=== PATIENT | female | born 2000 | race African-American/Black ===

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

== ENCOUNTER 2020-03-26 08:55 | Emergency (ER) | payer OTHER ==
[~2020-03-26] VITALS: Ht 182.9 cm; Wt 90.0 kg
[~2020-03-26 08:55] MED LIST: AMOX1TAB61 PO; HYDR-3165 PO
[2020-03-26 09:03] VITALS: BP 117/73
--- NOTE | 2020-03-26 09:44 | RAD ---
Examination: HAND LEFT 3V, WRIST 3V LEFT History: FELL, LEFT THUMB INJURED Comparison/Correlation: None Findings: Three-view left wrist and 3 view exam the left hand was performed. Joint spaces are normal. Comminuted fracture involving the left thumb distal phalanx is present at the distal shaft region. Extension into the phalangeal tuft proximally is evident. No intra-articular involvement./displacement of fracture fragments is present. Soft tissue swelling at the fracture site noted. No radiopaque foreign body. No degenerative changes. Impression: Comminuted fracture of the left thumb distal phalanx. No significant Electronically signed by: Yoni Sweeney MD (03/26/2020 9:41 AM) [id number]
--- NOTE | 2020-03-26 09:45 | RAD ---
Examination: CLAVICLE RIGHT History: Reason: RIGHT CLAVILE PAIN, FELL YESTERDAY Comparison/Correlation: None Findings: A total of 2 images of the right clavicle were obtained. Joint spaces are normal. No fracture or bone destruction. Right lung apex is unremarkable. Soft tissues unremarkable. Impression: Normal right clavicle x-ray exam. Electronically signed by: Yoni Sweeney MD (03/26/2020 9:42 AM) [id number]
[2020-03-26] MEDS ORDERED: HYDR-3165 PO (10:17)
--- NOTE | 2020-03-26 10:18 | PHYS DOC ---
Past History Past Medical History: No Pertinent History Past Surgical History: No Surgical History Smoking: Less than 1pk/day Alcohol Use: None Drug Use: None General Adult EDM: Chief Complaint: HAND PROBLEM HPI: HPI: Patient is a 19-year-old female who presented with left thumb injury, left left hand pain after she fell down yesterday. Patient also hurt her right clavicle area. Patient denies head or neck injury, no pelvic pain, no back pain Review of Systems: Review of Systems: Constitutional: Denies fever or chills Eyes: Denies change in visual acuity HENT: Denies nasal congestion or sore throat Respiratory: Denies cough or shortness of breath Cardiovascular: Denies chest pain or edema GI: Denies abdominal pain, nausea, vomiting, bloody stools or diarrhea : Denies dysuria Musculoskeletal: positive for right clavicle pain, left hand and thumb pain. Integument: Denies rash Neurologic: Denies headache, focal weakness or sensory changes Endocrine: Denies polyuria or polydipsia Lymphatic: Denies swollen glands Psychiatric: Denies depression or anxiety Heart Score: Risk Factors: Risk Factors: DM, Current or recent (<one month) smoker, HTN, HLP, family history of CAD, obesity. Risk Scores: Score 0 - 3: 2.5% MACE over next 6 weeks - Discharge Home Score 4 - 6: 20.3% MACE over next 6 weeks - Admit for Clinical Observation Score 7 - 10: 72.7% MACE over next 6 weeks - Early Invasive Strategies Allergies: Allergies: Allergies Coded Allergies Type Severity Reaction Last Updated Verified oxcarbazepine Allergy Intermediate 02/26/18 Yes Physical Exam: PE: Constitutional: Well developed, well nourished, no acute distress, non-toxic appearance. [] HENT: Normocephalic, atraumatic, bilateral external ears normal, oropharynx moist, no oral exudates, nose normal. [] Eyes: PERRLA, EOMI, conjunctiva normal, no discharge. [] Neck: Normal range of motion, no tenderness, supple, no stridor. [] Cardiovascular:Heart rate regular rhythm, no murmur [] Lungs & Thorax: Bilateral breath sounds clear to auscultation , RIGTH SIDE CLACIVLE IS TENDER TO PALPATION. NO CREPITUS. Abdomen: Bowel sounds normal, soft, no tenderness, no masses, no pulsatile masses. [] Skin: Warm, dry, no erythema, no rash. [] Back: No tenderness, no CVA tenderness. [] Extremities: LEFT THUMB IS TENDER TO PALPATION DISTALLY, NO OPEN WOUND, LEFT WRIST IS TENDER TO PALPATION AT THE SCAPHOID AREA. Neurologic: Alert and oriented X 3, normal motor function, normal sensory function, no focal deficits noted. [] Psychologic: Affect normal, judgement normal, mood normal. [] Current Patient Data: Vital Signs: Vital Signs Date Time Temp Pulse Resp B/P (MAP) Pulse Ox O2 Delivery O2 Flow Rate FiO2 03/26/20 09:03 98.4 86 16 117/73 (88) 98 Room Air EKG: EKG: [] Radiology/Procedures: Radiology/Procedures: [][address] [address] IMAGING REPORT Signed PATIENT: GABBY ENRIQUE ACCOUNT: [id number] : 2000 LOCATION: ER AGE: 19 SEX: F EXAM STATUS: PRE ER ORD. PHYSICIAN: JEF LÓPEZ DO REASON: FELL, LEFT THUMB INJURED PROCEDURE: HAND LEFT 3V Examination: HAND LEFT 3V, WRIST 3V LEFT History: FELL, LEFT THUMB INJURED Comparison/Correlation: None Findings: Three-view left wrist and 3 view exam the left hand was performed. Joint spaces are normal. Comminuted fracture involving the left thumb distal phalanx is present at the distal shaft region. Extension into the phalangeal tuft proximally is evident. No intra-articular involvement./displacement of fracture fragments is present. Soft tissue swelling at the fracture site noted. No radiopaque foreign body. No degenerative changes. Impression: Comminuted fracture of the left thumb distal phalanx. No significant Electronically signed by: Yoni Arrieta MD (03/26/2020 9:41 AM) [id number] DICTATED AND SIGNED BY: YONI ARRIETA MD DATE: 03/26/20 0941 CC: PCP,NO; JEF LÓPEZ DO ~ [address] [address] IMAGING REPORT Signed PATIENT: GABBY ENRIQUE ACCOUNT: [id number] : 2000 LOCATION: ER AGE: 19 SEX: F EXAM STATUS: PRE ER ORD. PHYSICIAN: JEF LÓPEZ DO REASON: RIGHT CLAVILE PAIN, FELL YESTERDAY PROCEDURE: CLAVICLE RIGHT Examination: CLAVICLE RIGHT History: Reason: RIGHT CLAVILE PAIN, FELL YESTERDAY Comparison/Correlation: None Findings: A total of 2 images of the right clavicle were obtained. Joint spaces are normal. No fracture or bone destruction. Right lung apex is unremarkable. Soft tissues unremarkable. Impression: Normal right clavicle x-ray exam. Electronically signed by: Yoni Arrieta MD (03/26/2020 9:42 AM) [id number] DICTATED AND SIGNED BY: YONI ARRIETA MD DATE: 03/26/20 0942 CC: PCP,SCARLETT; JEF LÓPEZ DO ~ Splinting Procedure: A VOLAR FLAP SPLINT INCLUDED THE THUMB, ORTHOGLASS MATERIAL, WAS APPLIED TO LEFT HAND AND WRIST BY THIS PHYSICIAN. PATIENT TOLERATED PROCEDURE WELL. NO NEUROVASCULAR DEFICIT POST SPLINTING. Course & Med Decision Making: Course & Med Decision Making Pertinent Labs and Imaging studies reviewed. (See chart for details) Patient is a 19-year-old female who sustained a comminuted fracture of her distal phalanx of the left thumb, close fracture, was splinted in the ER. Patient will need to follow-up with a hand surgeon at [facility] for further evaluation and treatment. Patient is amenable to plan of care. Greg Disclaimer: Greg Disclaimer: This electronic medical record was generated, in whole or in part, using a voice recognition dictation system. Departure Departure: Impression: Primary Impression: Fracture of thumb, left, closed Disposition: 01 HOME/RESIDENCE PRIOR TO ADM Condition: IMPROVED Referrals: PCP,SCARLETT (PCP) Please call [facility] for follow up with the hand surgeon, Dr. Ang Reinoso or Dr. Quiñones within 5 days. The phone number is [phone]. Patient Instructions: Thumb Fracture Scripts Tramadol Hcl (TRAMADOL HCL) 50 Mg Tablet 50 MG PO PRN Q6HRS PRN for PAIN, #20 TAB Prov: JEF LÓPEZ DO 03/26/20 JEF LÓPEZ DO Mar 26, 2020 10:18
[2020-03-26] MEDS ORDERED: TRAM50TA PO (10:23)
== END 2020-03-26 10:25 | disposition home or self-care (01) ==
LOC: ER 08:55
DX: S62.522A Displaced fracture of distal phalanx of left thumb, initial encounter for closed fracture (principal); F17.200 Nicotine dependence, unspecified, uncomplicated; Z88.8 Allergy status to other drugs, medicaments and biological substances; W18.39XA Other fall on same level, initial encounter; Y93.89 Activity, other specified; Y92.89 Other specified places as the place of occurrence of the external cause; Y99.8 Other external cause status
CPT/HCPCS: 29125; 73000; 73110; 73130; 99284